=== PATIENT | male | born 1975 | race American Indian/Alaskan Native ===

== ENCOUNTER 2016-12-07 20:14 | Emergency (ER) | payer OTHER ==
[2016-12-07 20:58] LABS: BASO % 0.5 % (0.0-2.0); EOS # 0.1 K/uL (0.0-0.7); EOS % 0.6 % (0.0-4.0); HEMOGLOBIN 13.2 g/dL (12.0-18.0); LYMPH # 2.2 K/uL (1.0-4.3); LYMPH % 23.9 % (20.0-40.0); MEAN CELL VOLUME 81.8 fL (80.0-94.0); MEAN CORPUSCULAR HEMOGLOBIN 25.6 pg (27.0-31.0); MEAN CORPUSCULAR HGB CONC 31.3 g/dL (33.0-37.0); MEAN PLATELET VOLUME 8.6 fL (7.2-11.7); MONO # 1.2 K/uL (0.0-0.8); MONO % 13.4 % (0.0-10.0); NEUT # 5.8 K/uL (1.8-7.0); NEUT % 61.6 % (50.0-75.0); RBC 5.16 Mil/uL (4.40-5.90); RED CELL DISTRIBUTION WIDTH 14.2 % (11.5-14.5); WHITE BLOOD COUNT 9.3 K/uL (4.8-10.8)
[2016-12-07 21:01] LABS: SQUAMOUS EPITHIAL < 1 /hpf (0-5); URINE BACTERIA RARE (<OCC); URINE BILIRUBIN NEGATIVE (NEGATIVE); URINE CLARITY Clear (Clear); URINE COLOR Yellow (YELLOW); URINE GLUCOSE (UA) NORMAL (Normal); URINE LEUKOCYTE ESTERASE NEG Leu/uL (Negative); URINE NITRATE NEGATIVE (NEGATIVE); URINE PROTEIN NEGATIVE (NEGATIVE); URINE UROBILINOGEN NORMAL mg/dL (0.2-1.0)
[2016-12-07 21:08] LABS: URINE BLOOD 1+ (NEGATIVE)
[2016-12-07 21:13] LABS: ALBUMIN 3.9 g/dL (3.5-5.0)
[2016-12-07 21:15] LABS: AST/SGOT 22 U/L (17-59); GFR AFRICAN-AMERICAN > 60; GFR NON-AFRICAN AMERICAN > 60
[2016-12-07 21:16] LABS: ALB/GLOB RATIO 1.2 (1.0-2.1); ALT/SGPT 39 U/L (21-72); BLOOD UREA NITROGEN 15 mg/dL (9-20); CALCIUM 8.8 mg/dl (8.6-10.4); LIPASE 36 U/L (23-300)
--- NOTE | 2016-12-07 21:25 | C.PDOC ---
History Of Present Illness A 41 y/o M c/o cramping LLQ abdominal pain and no BM for the past 2 days. Denies nausea, vomiting, fever, chills, chest pain, SOB, or any other complaints. Time Seen by Provider: 12/07/16 20:34 Chief Complaint (Nursing): Abdominal Pain History Per: Patient History/Exam Limitations: no limitations Onset/Duration Of Symptoms: Days Current Symptoms Are (Timing): Still Present Severity: Mild Location Of Pain/Discomfort: LLQ Radiation Of Pain To:: None Associated Symptoms: denies: Fever, Chills, Nausea, Vomiting Recent travel outside of the [place]: No Additional History Per: Patient Past Medical History Reviewed: Historical Data, Nursing Documentation, Vital Signs Vital Signs: Last Vital Signs Temp 98.9 F 12/07/16 21:40 Pulse 71 12/07/16 21:40 Resp 18 12/07/16 21:40 BP 155/98 H 12/07/16 21:40 Pulse Ox 99 12/07/16 21:40 Family History: States: Unknown Family Hx - Social History Hx Alcohol Use: Yes Hx Substance Use: No - Immunization History Hx Tetanus Toxoid Vaccination: No Hx Influenza Vaccination: No Hx Pneumococcal Vaccination: No Review Of Systems Except As Marked, All Systems Reviewed And Found Negative. Constitutional: Positive for: Other (+KEANU). Negative for: Fever, Chills Cardiovascular: Negative for: Chest Pain Respiratory: Negative for: Shortness of Breath Gastrointestinal: Positive for: Abdominal Pain. Negative for: Nausea, Vomiting Physical Exam - Physical Exam Appears: Non-toxic, No Acute Distress, Other (Morbidly obese) Skin: Warm, Dry Head: Atraumatic, Normacephalic Eye(s): bilateral: Normal Inspection Cardiovascular: Rhythm Regular Respiratory: Normal Breath Sounds, No Accessory Muscle Use, No Rales, No Rhonchi , No Wheezing Gastrointestinal/Abdominal: Soft, Tenderness (Dull to percussion left abdomen) Neurological/Psych: Oriented x3, Normal Speech, Normal Cognition ED Course And Treatment - Laboratory Results Result Diagrams: 12/07/16 20:54 12/07/16 20:54 Lab Interpretation: Normal (UA neg.) O2 Sat by Pulse Oximetry: 97 (RA) Pulse Ox Interpretation: Normal - Radiology CXR: Interpreted by Me CXR Interpretation: Yes: No Acute Disease - Other Rad abd x 2 X-Ray: Interpreted by Me (+FOS) Medical Decision Making Medical Decision Making: Impression: A 41 y/o M c/o crampy LLQ abdominal pain and no BM for the past 2 days. diet related constipation uncontrolled weight gain and sleep apnea Disposition Doctor Will See Patient In The: Office Counseled Patient/Family Regarding: Studies Performed, Diagnosis - Disposition Referrals: Dheeraj Hodgson MD [Staff Provider] - Gabrielle Zepeda MD [Staff Provider] - Disposition: HOME/ ROUTINE Disposition Time: 21:22 Condition: GOOD Additional Instructions: drink a laxative now- one bottle of Mag Citrate- and re-evaluate your abdominal discomfort after using the bathroom 2-3 times continue daily stool softners diet changes to have 7 fresh fruits and vegetables daily. Drink more water sleep Apnea: Follow-up with Dr. Hodgson to make an appointment for a Sleep Study. Instructions: Snoring (ED), Constipation (ED), Gas and Bloating (ED) - Clinical Impression Clinical Impression: Abdominal colic, Sleep apnea in adult - Scribe Statement The provider has reviewed the documentation as recorded by the Scribe Carlos chen All medical record entries made by the Scribe were at my direction and personally dictated by me. I have reviewed the chart and agree that the record accurately reflects my personal performance of the history, physical exam, medical decision making, and the department course for this patient. I have also personally directed, reviewed, and agree with the discharge instructions and disposition.
[2016-12-07] MEDS ORDERED: Tmp-Smz 800 mg-160 mg DS Tab ONE (21:51)
--- NOTE | 2016-12-08 11:15 | RAD ---
PROCEDURE: Radiographs of the chest and abdomen (obstructive series) HISTORY: abd pain COMPARISON: No prior. TECHNIQUE: AP radiograph of the chest, with upright and supine radiographs of the abdomen. FINDINGS: CHEST: Lungs: Clear. Cardiovascular: Normal size heart. No pulmonary vascular congestion. Pleura: No pleural fluid. No pneumothorax. Other findings: None. ABDOMEN AND PELVIS: Bowel: Mild constipation. Otherwise unremarkable bowel gas pattern. No evidence of mechanical obstruction. Free air: None. Bones: Unremarkable. Other findings: None. IMPRESSION: Mild constipation. Otherwise unremarkable radiographs of chest and abdomen. No evidence of mechanical bowel obstruction.
[2016-12-08 12:10] VITALS: BP 155/98; PULSE 71; RESP 18; TEMP 98.9; O2SAT 97
== END 2016-12-07 21:40 | disposition home or self-care (01) ==
LOC: C.ER 20:14
DX: R10.84 Generalized abdominal pain (principal); G47.30 Sleep apnea, unspecified

== ENCOUNTER 2018-02-11 19:04 | Emergency (ER) | payer OTHER ==
[2018-02-11 19:35] VITALS: BP 125/83; PULSE 91; RESP 20; TEMP 98.2; O2SAT 97
--- NOTE | 2018-02-11 20:32 | C.PDOC ---
History Of Present Illness 42 y/o male presents to the ED complaining of pain to the left knee and left upper thigh s/p fall at work. States he slipped on wet nair on floor, causing him to twist his left knee forcefully and fall back. He landed on his back but denies any back pain or head injury. Pain has progressively worsened, especially with ambulation. Otherwise he denies any numbness, tingling, or other complaints. - HPI Time Seen by Provider: 02/11/18 20:29 Chief Complaint (Nursing): Trauma History Per: Patient History/Exam Limitations: no limitations Onset/Duration Of Symptoms: Hrs Injury Occurred (Timing): Hours Ago: (6) Past Medical History Reviewed: Historical Data, Nursing Documentation, Vital Signs Vital Signs: Last Vital Signs Temp 98.2 F 02/11/18 19:34 Pulse 91 H 02/11/18 19:34 Resp 20 02/11/18 19:34 BP 125/83 02/11/18 19:34 Pulse Ox 97 02/12/18 00:33 - Medical History PMH: Sleep Apnea Family History: States: Unknown Family Hx - Social History Hx Alcohol Use: Yes Hx Substance Use: No - Immunization History Hx Tetanus Toxoid Vaccination: No Hx Influenza Vaccination: No Hx Pneumococcal Vaccination: No Review Of Systems Musculoskeletal: Positive for: Leg Pain (left knee and upper thigh pain) Skin: Negative for: Lesions, Bruising Neurological: Negative for: Weakness, Numbness, Incoordination Physical Exam - Physical Exam Appears: Non-toxic, No Acute Distress Skin: Normal Color, Warm, Dry Eye(s): bilateral: Normal Inspection Neck: Normal ROM Chest: Symmetrical Respiratory: No Accessory Muscle Use, Other (No respiratory distress) Extremity: Capillary Refill (less than 2sec), No Deformity, Swelling (to the left suprapatellar area and distal thigh), Other (Limited ROM of left knee secondary to pain) Pulses: Left Dorsalis Pedis: Normal, Right Dorsalis Pedis: Normal Neurological/Psych: Oriented x3, Normal Speech, Normal Motor, Normal Sensation ED Course And Treatment O2 Sat by Pulse Oximetry: 97 (RA) Pulse Ox Interpretation: Normal - CT Scan/US CT L Knee Other Rad Studies (CT/US): Read By Radiologist, Radiology Report Reviewed CT/US Interpretation: FINDINGS: Bones/joints: Distal femur is intact. Patella is intact. Proximal fibula is intact. There is fragmentation. of the tibial tubercle. Bony fragments are well-corticated. No acute tibial fractures are identified. Soft tissues: There is soft tissue swelling about the knee. There is hemorrhage in the suprapatellar. soft tissues. There is no effusion in the suprapatellar bursa. IMPRESSION: Suprapatellar hemorrhage suggesting quadriceps tendon injury/tear, followup MRI is. suggested for evaluation of the quadriceps tendon; well-corticated ununited tibial tuberosity fragments. suggesting chronic Alan-Schlatter change, no acute fracture Progress Note: Patient given PO naproxen for pain control. X-ray taken of the left knee, and shows fracture of the left tibial tuberosity. Discussed w/ Dr. Nimesh Jimenes, ortho on-call, who advises CT scan of left knee be ordered and patient can be discharged with knee immobilizer and crutches for non weight bearing.Patient educated on imaging results and follow up instructions. Provided with copy of CT report. Disposition Counseled Patient/Family Regarding: Studies Performed, Diagnosis, Rx Given - Disposition Referrals: Arin Bates MD [Staff Provider] - Disposition: HOME/ ROUTINE Disposition Time: 23:08 Condition: STABLE Additional Instructions: Keep knee immobilizer for support Use crutches to avoid weight bearing Follow up with Dr Bates- call office tomorrow afternoon if you have not been cintacted by then Apply ICE to area Return to ER if worse Prescriptions: Ibuprofen [Motrin Tab] 800 mg PO QID #20 tab Instructions: Ligament Injuries in the Knee (DC) Forms: [facility] [facility] ([place]), Work Excuse - Clinical Impression Clinical Impression: Left knee injury, Fracture of left tibial tuberosity, Injury of quadriceps tendon - PA / [employer] / Resident Statement MD/DO has reviewed & agrees with the documentation as recorded. - Scribe Statement The provider has reviewed the documentation as recorded by the Scribe (Hollie Capone) All medical record entries made by the Scribe were at my direction and personally dictated by me. I have reviewed the chart and agree that the record accurately reflects my personal performance of the history, physical exam, medical decision making, and the department course for this patient. I have also personally directed, reviewed, and agree with the discharge instructions and disposition.
[2018-02-11] MEDS ORDERED: Naproxen 550 mg Tab PO STA (20:47)
[2018-02-11] MEDS ORDERED: Naproxen 550 mg Tab PO ONE (20:55)
--- NOTE | 2018-02-12 08:36 | RAD ---
Date of service: 02/11/2018 PROCEDURE: Left Knee Radiographs. HISTORY: Pain. COMPARISON: None. FINDINGS: BONES: No acute fracture or destructive bony lesion identified. JOINTS: No subluxation or dislocation identified. JOINT EFFUSION: None. OTHER FINDINGS: Soft tissue edema may overlie the suprapatellar bursa region IMPRESSION: No acute fracture or dislocation. Soft tissue edema may be present overlying upper knee above the level of the patella.
--- NOTE | 2018-02-12 10:08 | CT ---
CT left knee HISTORY: Injury. COMPARISON: None available. Technique: Multiple contiguous axial images were performed through the left knee without the use of intravenous contrast. Subsequently, sagittal and coronal reformatted images were obtained. This CT exam was performed using one or more of the following dose reduction techniques: Automated exposure control, adjustment of the mA and/or kV according to patient size, and/or use of iterative reconstruction technique. Findings: Suprapatellar hemorrhage measuring 6.6 x 4.9 x 4.4 centimeters at the level of the distal quadriceps tendon concerning for quadriceps tendon injury and or tear. Follow-up MRI is suggested for evaluation of quadriceps tendon. Small suprapatellar joint effusion. Laxity of the patellar tendon. Bony fragmentation with ossified densities noted at the level of the anterior tibial tubercle. The ossific densities appear well corticated. The largest fragment measures up to 1.4 centimeters. These ununited tibial tuberosity fragments may represent chronic [place] Schlatter change. Superimposed acute osseous injury cannot entirely be excluded. Again correlation with MRI would be helpful for further evaluation if clinically indicated. Small suprapatellar joint effusion. Fluid and edema within the prepatellar soft tissues. Mild medial compartment joint space narrowing of the femorotibial joint space. Impression: Suprapatellar hemorrhage measuring 6.6 x 4.9 x 4.4 centimeters at the level of the distal quadriceps tendon concerning for quadriceps tendon injury and or tear. Follow-up MRI is suggested for evaluation of quadriceps tendon. Small suprapatellar joint effusion. Laxity of the patellar tendon. Bony fragmentation with ossified densities noted at the level of the anterior tibial tubercle. The ossific densities appear well corticated. The largest fragment measures up to 1.4 centimeters. These ununited tibial tuberosity fragments may represent chronic [place] Schlatter change. Superimposed acute osseous injury cannot entirely be excluded. Again correlation with MRI would be helpful for further evaluation if clinically indicated. Small suprapatellar joint effusion. Fluid and edema within the prepatellar soft tissues. Mild medial compartment joint space narrowing of the femorotibial joint space. These findings were preliminarily reported at 10:52 p.m. on 02/11/[address] Kathleen Farrar from [facility].
== END 2018-02-11 23:24 | disposition home or self-care (01) ==
LOC: C.ER 19:04
DX: S82.152A Displaced fracture of left tibial tuberosity, initial encounter for closed fracture (principal); S76.102A Unspecified injury of left quadriceps muscle, fascia and tendon, initial encounter; W01.0XXA Fall on same level from slipping, tripping and stumbling without subsequent striking against object, initial encounter; Y99.0 Civilian activity done for income or pay

== ENCOUNTER 2018-02-28 09:09 | Day surgery (SDC) | payer OTHER ==
[2018-02-25 14:22] VITALS: BMI 41.8
[2018-02-28 15:23] VITALS: BP 147/85; PULSE 82; RESP 18; TEMP 98; O2SAT 100
== END 2018-02-28 15:20 | disposition home or self-care (01) ==
LOC: C.SDS 09:09
PROVIDERS: ATTEND Student in an Organized Health Care Education/Training Program
DX: M66.252 Spontaneous rupture of extensor tendons, left thigh (principal); S83.012D Lateral subluxation of left patella, subsequent encounter; Z53.9 Procedure and treatment not carried out, unspecified reason

== ENCOUNTER 2018-08-01 10:57 | Outpatient (CLI) | payer OTHER | END 2018-08-01 10:58 | disposition home or self-care (01) | LOC: C.PAT 10:57 | DX: M66.252 Spontaneous rupture of extensor tendons, left thigh (principal); S83.012D Lateral subluxation of left patella, subsequent encounter; M25.662 Stiffness of left knee, not elsewhere classified ==

== ENCOUNTER 2018-08-06 07:10 | Day surgery (SDC) | payer OTHER ==
[2018-02-25 14:22] VITALS: BMI 41.8
[2018-08-06] MEDS ORDERED: Midazolam 2 MG/2 ML VIAL ONE (10:29)
[2018-08-06] MEDS ORDERED: Propofol 10 mg/ml Inj (20 ML) ONE (10:29)
[2018-08-06] MEDS ORDERED: HYDROmorphone 0.5 mg/0.5 ml ISec IVP PRN (11:10)
[2018-08-06] MEDS ORDERED: Lactated Ringer's 1,000 ML IV SCH (11:15)
--- NOTE | 2018-08-06 11:32 | PCM.SURG1 ---
Surgeon's Initial Post Op Note - Surgeon's Notes Surgeon: Arin Reis MD Dryer Operator: None Type of Anesthesia: General LMA Pre-Operative Diagnosis: Left knee: #1 arthrofibrosis / stiffness / loss of ROM= 0-80. #2 s/p open Quad tendon tear 03/06/18 Operative Findings: Left knee: #1 arthrofibrosis / stiffness / loss of ROM= 0- 80. #2 s/p open Quad tendon tear 03/06/18 Post-Operative Diagnosis: Left knee: #1 arthrofibrosis / stiffness / loss of ROM= 0-80. #2 s/p open Quad tendon tear 03/06/18 Operation Performed: Left knee YESICA Specimen/Specimens Removed: specimen= none. complications= none. Pre-YESICA ROM= 0-80. Post-YESICA ROM= 0-120 (full ROM compared to contralateral knee) Estimated Blood Loss: EBL {In ML}: 0 Blood Products Given: N/A Drains Used: No Drains Post-Op Condition: Good Date of Surgery/Procedure: 08/06/18 Time of Surgery/Procedure: 11:33
[2018-08-06 13:40] VITALS: RESP 18; TEMP 97.8
--- NOTE | 2018-08-06 13:46 | RAD ---
Date of service: 08/06/2018 PROCEDURE: Left Knee Radiographs. HISTORY: Pain. COMPARISON: None. FINDINGS: BONES: No evidence of acute fracture JOINTS: Mild osteoarthritic changes. JOINT EFFUSION: Suspicious for small suprapatellar joint effusion OTHER FINDINGS: Mild soft tissue swelling around the knee. IMPRESSION: No evidence of acute fracture or dislocation. Mild suprapatellar joint effusion and mild soft tissue swelling.
[2018-08-06 15:16] VITALS: BP 138/89; PULSE 68; O2SAT 99
--- NOTE | 2018-08-18 08:14 | OP ---
PROCEDURE DATE: 08/06/2018 PREOPERATIVE DIAGNOSES: 1. Left knee arthrofibrosis/stiffness/limited range of motion (0 to 80 degrees). 2. Status post open quad tendon tear and vastus medialis obliquus advancement on 03/06/2018. POSTOPERATIVE DIAGNOSES: 1. Left knee arthrofibrosis/stiffness/limited range of motion (0 to 80 degrees). 2. Status post open quad tendon tear and vastus medialis obliquus advancement on 03/06/2018. PROCEDURE: Left knee manipulation under anesthesia. SURGEON: Arin Reis MD BODY FINISHER: None. TYPE OF ANESTHESIA: General LMA anesthesia. SPECIMEN: None. COMPLICATIONS: None. ESTIMATED BLOOD LOSS: 0 mL. DRAINS: None. DISPOSITION: The patient was awakened from general anesthesia and transferred to the PACU in stable condition and tolerated the procedure well. PREMANIPULATION UNDER ANESTHESIA: Range of motion = 0 to 80 degrees. POSTMANIPULATION UNDER ANESTHESIA: Range of motion = 0 to 120 degrees, this is full range of motion compare to contralateral knee for this patient's anatomy (+ obesity). INDICATIONS FOR SURGERY: The patient is a 43-year-old male with a past medical history significant for obesity and obstructive sleep apnea who originally presented to the emergency room at [facility] on 03/05/2018 with left knee severe pain; not controllable with pain medication by mouth with a known quad tendon tear. The patient underwent the open quad tendon repair and VMO advancement on 03/06/2018. He was compliant with the postop rehabilitation protocol and was advised to work hard on regaining range of motion. Unfortunately, he despite best efforts, developed arthrofibrosis and plateaued in his attempt to regain his range of motion with no overall improvement over a six-week span and was indicated for manipulation under anesthesia. This is a [place] Workmen's Comp case with a date of injury of 02/11/2018. 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 As he was falling, he felt was strong pop in his left knee at the location of the quadriceps just above his patella resulting in immediate 10/10 pain and inability to ambulate. He went to the ER [facility] same day on 02/11/2018. He was evaluated by ER staff and initially diagnosed with a possible tibial fracture. The fracture was ruled out and with the help of CT and more diligent physical examination, he was diagnosed with a quadriceps tendon tear and referred for orthopedic evaluation as an outpatient. He was placed in a postoperative hinged knee brace initially in my office locked at 0 degrees extension, but his workmen's comp case was not open yet, and there was a significant delay. He had been indicated for the left knee open quadriceps tendon repair after we obtained the CT and MRI confirming the diagnosis. Unfortunately, the workmen's comp case was actually never opened in time, and he started to develop worsening pain and went to the ER at [facility] at which point he was admitted for pain control and after being consulted to see him and going over treatment options with the patient again, we decided to proceed with urgent open quadriceps tendon repair and VMO advancement/proximal extensor mechanism realignment and placement in a cylinder cast at [facility] on 03/06/2018. He underwent the procedure without any complications and tolerated the procedure well and in the cylinder cast was able to ambulate and was discharged home later that day. Follow up in the office, the wounds were check, and a new cylinder cast was placed. The cylinder cast was discontinued on 04/08/2018, and he was placed in a new postoperative brace locked at 0 degree extension. At that point in time, he was given a postoperative rehabilitation protocol and referred to start physical therapy as well as extensive home exercise program. He progressed well with physical therapy and continued strong forward progress and compliance with all recommendations. On 04/29/2018, a prescription for a flexinator was sent to the [employer] to obtain a flexinator for him to work passively at home on regaining flexion. He did receive the flexinator in 05/2018 and was attempting to use it as much as possible. Then there was a question about insurance and whether or not he was able to continue going to physical therapy at which point his forward progress really came to a halt, and he plateaued with no overall improvement over the next few months. Finally, when I saw him in the office on 07/29/2018, his range of motion was basically the same 0 to 80 flexion arc with no improvement, no ability to flex test at this point. He had great quadriceps tendon strength, and I felt that this was a good time to perform the manipulation under anesthesia since the literature supports in all cases for knee manipulation to be performed prior to the six-month jenna to maximize the chances of a successful outcome with manipulation under anesthesia. He was indicated for a left knee manipulation under anesthesia. The risks, benefits, and alternatives to the procedure were discussed at length with the patient with the risk including but not limited to infection, neurovascular damage, need for further surgery, need for arthroscopic lysis of adhesions and secondary manipulation under anesthesia, development of chronic pain and disability, development of blood clots including DVT and PE, cardiopulmonary complications, , inability to return to preinjury level of activity and occupation. After answering all these questions, he stated that he understood the risks and wished to proceed with the procedure. He was referred to his primary care physician for preoperative medical evaluation and PATs. The procedure was scheduled on 08/06/2018 at [facility]. I was able to obtain urgent authorization from the workmen's comp carrier for the procedure to be carried out and the procedure was scheduled. At this time around, arrangements were made for him to have physical therapy five times a week, starting postoperative day #1 and it was confirmed that he indeed has a flexinator at home, and he was instructed to use the flexinator for four hours a day at a minimum. PROCEDURE IN DETAIL: The patient was identified in the preoperative holding area and the left knee was marked for surgery. Once again as described above, the risks, benefits, and alternatives to the procedure were discussed at length with the patient and informed consent was obtained. After brief discussion with the anesthesia staff, the patient was taken to the operating room and placed on a well-padded operating room table with all bony prominences and superficial neurovascular structures well padded. An initial time-out was done with the surgeon, anesthesia staff, and OR staff, all in agreement with the patient, procedure being done, and extremity being operated on. General anesthesia was administered without difficulty or complications. Examination under anesthesia was then carried out. EXAMINATION UNDER ANESTHESIA: Left knee with limited range of motion from 0 to 80 degrees flexion arc. Despite being under general anesthesia, his flexion did not change, there was a mechanical stop at 80 degrees flexion. No evidence of instability with negative anterior drawer, posterior drawer, negative Lux, negative reverse Lux, negative opening to medial and lateral joint line at 0 or 30 degrees varus or valgus stress, patella with normal tracking, and no residual lateral tracking present with successful proximal extensive mechanism realignment, surgical wound is well healed. No swelling. No warmth. No erythema. Skin intact. CONTINUATION OF THE PROCEDURE: Final timeout was done with the surgeon, anesthesia staff, OR staff, all in agreement with the patient, the procedure being done, and the extremity being operated on. After obtaining confirmation from the anesthesia staff present that muscle relaxation was administered, we then proceeded with the manipulation under anesthesia. Left knee was slowly flexed beyond the mechanical stop with audible and palpable popping at the anterior aspect of the knee as well as the superior aspect of the knee at the region of the quadriceps and suprapatellar pouch. After series of popping and breaking up of scar tissue, I was able to obtain 120 degrees flexion from 0 degrees extension. Compared to the contralateral knee, this was actually full range of motion/baseline range of motion for him. A compressive Osullivan dressing was then placed from the toes up to the superior thigh consisting of cast padding and compressive Delmar wrap overlying the cast padding. Knee was then fitted and placed in a knee immobilizer. Once the knee immobilizer was in position, he was then awakened from LMA general anesthesia and transferred to PACU in stable condition. DISPOSITION: He will be discharged home once he has recovered from anesthesia. He is to be weightbearing as tolerated with the knee immobilizer brace on for the first 24 to 48 hours until he regains his quad strength. He will contact me directly if he has any questions or concerns. He has been given a prescription for Vicoprofen as pain control. He has been given a prescription for Lovenox as DVT prophylaxis starting postoperative day #1 and continuing for two weeks postoperatively. He will follow up at [facility] within two weeks and already has his postoperative appointment setup. Arin Reis MD
== END 2018-08-06 15:11 | disposition hospice, home (50) ==
LOC: C.SDS 07:10
PROVIDERS: ATTEND Student in an Organized Health Care Education/Training Program
DX: M24.662 Ankylosis, left knee (principal); S83.012D Lateral subluxation of left patella, subsequent encounter; E66.9 Obesity, unspecified; G47.33 Obstructive sleep apnea (adult) (pediatric); S86.812D Strain of other muscle(s) and tendon(s) at lower leg level, left leg, subsequent encounter; Y93.01 Activity, walking, marching and hiking; Y92.89 Other specified places as the place of occurrence of the external cause; Y99.0 Civilian activity done for income or pay; W01.0XXD Fall on same level from slipping, tripping and stumbling without subsequent striking against object, subsequent encounter
CPT/HCPCS: 27570; 73560; J2250; J2704; J3010